=== PATIENT | female | born 1935 | race Caucasian/White ===

== ENCOUNTER → 2016-04-26 | Outpatient (CLI) | payer MEDICARE, BC ==
[~2016-04-26] MED LIST: ALAVERT10 M1 PO; FELDENE 20MG. C20 MG PO; HYDROCORTISONE30 G1 PR; METAMUCIL(SF)1 EACH PO; MIRALAX17 GM/PACK PO; MULTIVITAMIN1 TA1 PO; PATANOL 5 ML5 ML OP; PRAVACHOL20 MG PO; PREMARIN0.3 MG PO; PRILOSEC40 MG PO; SULFACETAMI15 ML/BOT OP
--- NOTE | 2016-04-27 14:17 | RADIOLOGY REPORT PS360 ---
DIG MAMM-SCREEN [facility]AYLYN W/CAD CAD Screening ORDERING PHYSICIAN : Mark Shepard MD PATIENT AGE: 80 years GENDER: Female COMPARISON: Previous mammograms: March 2015, March 2014 and February 2013. Also 2011 and 2009 images utilized. INDICATION: Routine screening no hormones. No new complaints. Grandmother with breast cancer TECHNIQUE: Standard CC and MLO images were obtained. R2 CAD reviewed. FINDINGS: Moderately dense breast. Right breast remain fairly dense for a patient this age.. . Slightly nodular character both breast again evident and similar to previous studies. RIGHT BREAST: The slightly denser tissue at tissue immediate retroareolar region laterally is again noted and similar to studies dating back to 2010 and 2012 on cc view.. No significant new findings right breast LEFT BREAST: Stable mild asymmetry with no significant new areas concern IMPRESSION: Stable bilateral mammogram. No new areas of concern. Stable moderate asymmetry and moderately dense breas particularly for this age patient t. BI-RADS CATEGORY: 2_Benign RECOMMENDED FOLLOWUP: 12M 12 MONTH FOLLOW-UP (A letter has been sent to the patient regarding results of the study.)
== END ==
LOC: RAD 04-25 10:00
DX: Z12.31 Encounter for screening mammogram for malignant neoplasm of breast (principal)
CPT/HCPCS: G0202